=== PATIENT | female | born 2000 | race Two or more races ===

== ENCOUNTER → 2024-08-21 | Outpatient (CLI) | payer BC, SELFPAY ==
--- NOTE | 2024-08-21 15:30 | XR_ITS ---
Examination: CT maxillofacial, without intravenous contrast. 2-D sagittal reconstructions. 3-D reconstructions. Date and time of exam:August 21, 2024 1531 hours INDICATIONS: Diagnosis chronic sinusitis sinus pressure and pain, nasal polyps rhinoplasty 3 months ago duration of sinusitis symptoms 4 years CTDI: vol (mGy):7.22 DLP: (mGycm):94.3 Technique: Multiple axial images of maxillofacial region, 3.0 mm slice thickness. 2-D sagittal and coronal reconstructions. 3-D reconstructions. Low dose protocols were performed. One or more of the following dose reduction techniques were used; automated exposure control, adjustment of the mA and/or KV according to patient size, use of iterative reconstruction technique. Findings: Total opacification frontal ethmoid air cells Occlusion ostiomeatal complexes 21 mm retention cyst left maxillary antrum with prominent mucosal disease in the maxillary antra including fluid level right maxillary antrum Fluid level also right sphenoid and left sphenoid air cells No nasopharyngeal mass Adequate mastoid aeration Negative for otitis externa or otitis media Symmetrical internal auditory canals No visualized cerebral mass IMPRESSION: Severe sinusitis as above Acute right maxillary and sphenoid sinusitis.
== END | disposition home or self-care (01) ==
LOC: CCTX 15:18
PROVIDERS: Referring Provider Otolaryngology; Visit Provider Otolaryngology
DX: J32.8 Other chronic sinusitis (principal); J01.80 Other acute sinusitis
CPT/HCPCS: 70486